=== PATIENT | female | born 1975 | race Two or more races ===

== ENCOUNTER 2021-03-03 09:30 | Inpatient (IN) | payer OTHER ==
[~2021-03-03] VITALS: Ht 160 cm; Wt 70.3 kg
[2021-03-03] MEDS ORDERED: VYTORIN 10-101 EACH PO (14:10)
[2021-03-18] MEDS ORDERED: DSS100 MG (08:55)
[2021-03-18] MEDS ORDERED: EZETIMIBE-SIMV1 EAC1 (08:55)
[2021-03-18] MEDS ORDERED: CELECOXIB200 MG (08:55)
[2021-03-21] MEDS ORDERED: HYOSCYAMINE0.125 M1 SL (13:59)
[2021-03-21] MEDS ORDERED: INTESTINEX680 M1 PO (13:59)
[2021-03-21] MEDS ORDERED: ULTRACET PO (14:00)
== END 2021-03-21 17:01 | disposition home or self-care (01) | DRG 330 ==
LOC: EDSTATUS 09:30 → ADM 09:30 → O/R 03-18 05:57 → SURH 03-18 09:30 → OB/GYN 03-18 17:43
PROVIDERS: Obstetrics & Gynecology Gynecology; Urology; ADMIT Surgery; ATTEND Surgery
PROC: 0TN64ZZ Release Right Ureter, Percutaneous Endoscopic Approach (ICD-10-PCS; 2021-03-18)
PROC: 0UT94ZZ Resection of Uterus, Percutaneous Endoscopic Approach (ICD-10-PCS; 2021-03-18)
PROC: 0UT24ZZ Resection of Bilateral Ovaries, Percutaneous Endoscopic Approach (ICD-10-PCS; 2021-03-18)
PROC: 0UT74ZZ Resection of Bilateral Fallopian Tubes, Percutaneous Endoscopic Approach (ICD-10-PCS; 2021-03-18)
PROC: 0T988ZZ Drainage of Bilateral Ureters, Via Natural or Artificial Opening Endoscopic (ICD-10-PCS; 2021-03-18)
PROC: 0DJD8ZZ Inspection of Lower Intestinal Tract, Via Natural or Artificial Opening Endoscopic (ICD-10-PCS; 2021-03-18)
PROC: 0DTN4ZZ Resection of Sigmoid Colon, Percutaneous Endoscopic Approach (ICD-10-PCS; principal; 2021-03-18 10:30)
PROC: 0DTJ4ZZ Resection of Appendix, Percutaneous Endoscopic Approach (ICD-10-PCS; 2021-03-18 10:30)
PROC: 0DBP4ZZ Excision of Rectum, Percutaneous Endoscopic Approach (ICD-10-PCS; 2021-03-18 10:30)
DX: N80.5 Endometriosis of intestine (principal); K35.30 Acute appendicitis with localized peritonitis, without perforation or gangrene; N73.6 Female pelvic peritoneal adhesions (postinfective); N80.0 Endometriosis of uterus; N80.1 Endometriosis of ovary; N80.2 Endometriosis of fallopian tube; N80.4 Endometriosis of rectovaginal septum and vagina; D25.1 Intramural leiomyoma of uterus; D25.2 Subserosal leiomyoma of uterus

== ENCOUNTER 2021-03-05 06:27 | Day surgery (SDC) | payer OTHER ==
[~2021-03-05 06:27] MED LIST: VYTORIN 10-101 EACH PO
== END 2021-03-05 10:10 | disposition home or self-care (01) ==
LOC: AMB-ENDOS 06:27
PROVIDERS: ATTEND Surgery
DX: K62.89 Other specified diseases of anus and rectum (principal); K64.8 Other hemorrhoids